=== PATIENT | female | born 1995 | race Caucasian/White ===

== ENCOUNTER 2018-05-21 13:53 | Emergency (ER) | payer OTHER ==
[~2018-05-21] VITALS: Ht 157.5 cm; Wt 86.2 kg
[~2018-05-21 13:53] MED LIST: ACETAMINOPHEN-1 EAC1 PO; AZITHROMYCIN 2250 MG PO; BENADRYL25 MG; FLONASE 0.05%50 MCG NASAL; IBUPROFEN 400400 M2 PO; VENTOLIN HFA 1818 GM INH; [UNRECOGNIZED DRUG - REMARK]
[2018-05-21 15:07] LABS: URINE BILIRUBIN NEGATIVE (Negative); URINE BLOOD NEGATIVE (Negative); URINE CLARITY CLEAR; URINE COLOR YELLOW; URINE GLUCOSE-RANDOM* NEGATIVE (Negative); URINE KETONES NEGATIVE (Negative); URINE NITRITE-REFLEX NEGATIVE (Negative); URINE PROTEIN (DIPSTICK) NEGATIVE (Negative); URINE SPECIFIC GRAVITY 1.025 (1.005-1.035)
[2018-05-21 15:08] LABS: URINE LEUKOCYTES-REFLEX 1+ (Negative); URINE UROBILINOGEN 0.2 E.U./dl (0.2-1.0)
[2018-05-21 15:20] LABS: CASTS None Seen /LPF (None Seen); SQUAMOUS >10 Many /LPF (0-3); URINE RBC 3-10 Few /HPF (0-2)
[2018-05-21 15:21] LABS: AMORPHOUS URATES Moderate /LPF (None Seen); BACTERIA-REFLEX None Seen /HPF (None Seen); URINE WBC-REFLEX 0-5 Rare /HPF (0-5)
[2018-05-21] MEDS ORDERED: TRAMADOL 50 MG50 MG PO (16:45)
[2018-05-21] MEDS ORDERED: CLEOCIN HCL150 MG PO (16:45)
[2018-05-21 17:31] VITALS: BP 139/93
== END 2018-05-21 17:32 | disposition home or self-care (01) ==
LOC: ER 13:53
PROVIDERS: Physician Assistant
DX: N75.1 Abscess of Bartholin's gland (principal); J45.909 Unspecified asthma, uncomplicated; Z88.0 Allergy status to penicillin

== ENCOUNTER 2018-05-24 21:44 | Emergency (ER) | payer OTHER ==
[~2018-05-24] VITALS: Ht 162.6 cm; Wt 102.1 kg
[~2018-05-24 21:44] MED LIST changes: +CLEOCIN HCL150 MG PO; +TRAMADOL 50 MG50 MG PO
[2018-05-24 23:48] VITALS: BP 100/70
== END 2018-05-24 23:50 | disposition home or self-care (01) ==
LOC: ER 21:44
DX: N75.8 Other diseases of Bartholin's gland (principal); J45.909 Unspecified asthma, uncomplicated; Z88.0 Allergy status to penicillin

== ENCOUNTER 2018-10-07 11:49 | Emergency (ER) | payer OTHER ==
[~2018-10-07] VITALS: Ht 162.6 cm; Wt 106.6 kg
[2018-10-07] MEDS ORDERED: ANTIVERT25 MG PO (14:17)
[2018-10-07] MEDS ORDERED: MUCINEX D ER 11 EACH PO (14:17)
[2018-10-07] MEDS ORDERED: TESSALON PERLE100 MG PO (14:17)
[2018-10-07 14:31] VITALS: BP 132/79
== END 2018-10-07 14:32 | disposition home or self-care (01) ==
LOC: ER 11:49
DX: J06.9 Acute upper respiratory infection, unspecified (principal); H83.01 Labyrinthitis, right ear; H61.22 Impacted cerumen, left ear; J45.909 Unspecified asthma, uncomplicated; Z88.0 Allergy status to penicillin

== ENCOUNTER 2019-12-22 10:30 | Emergency (ER) | payer OTHER ==
[~2019-12-22] VITALS: Ht 162.6 cm; Wt 106.6 kg
[~2019-12-22 10:30] MED LIST changes: +ANTIVERT25 MG PO; +MUCINEX D ER 11 EACH PO; +TESSALON PERLE100 MG PO
[2019-12-22 11:05] LABS: ABSOLUTE NEUTROPHILS 4.9 thou/uL (1.4-8.2); BASOPHILS 0.8 % (0.0-2.0); EOSINOPHILS 1.6 % (0.0-3.0); HEMOGLOBIN 14.6 gm/dL (12.0-15.0); LYMPHOCYTES 35.6 % (24.0-44.0); MCHC 33.3 g/dL (28.0-37.0); MCV 81.1 fL (80.0-100.0); MONOCYTES 5.6 % (1.0-8.0); PLATELET COUNT 207 thou/uL (150-400); POLYS 56.4 % (36.0-66.0); RBC 5.42 mil/uL (4.20-5.00); RDW 13.7 % (10.5-14.5); WBC 8.6 thou/uL (4.0-11.0)
[2019-12-22 11:28] LABS: CALCIUM 9.2 mg/dL (8.5-10.1); CREATININE 0.8 mg/dL (0.6-1.0); POTASSIUM 3.9 mmol/L (3.5-5.1)
[2019-12-22 11:32] LABS: URINE BILIRUBIN NEGATIVE (Negative); URINE BLOOD NEGATIVE (Negative); URINE CLARITY CLEAR; URINE COLOR YELLOW; URINE GLUCOSE-RANDOM* NEGATIVE (Negative); URINE KETONES NEGATIVE (Negative); URINE NITRITE-REFLEX NEGATIVE (Negative); URINE PROTEIN (DIPSTICK) NEGATIVE (Negative); URINE SPECIFIC GRAVITY >= 1.030 (1.005-1.035); URINE UROBILINOGEN 0.2 E.U./dl (0.2-1.0)
[2019-12-22 11:33] LABS: URINE LEUKOCYTES-REFLEX 1+ (Negative)
[2019-12-22 11:34] LABS: ALBUMIN 4.1 g/dL (3.4-5.0); TOTAL BILIRUBIN 0.5 mg/dL (0.2-1.0); TOTAL PROTEIN 7.9 g/dL (6.4-8.2)
[2019-12-22 11:45] LABS: CASTS None Seen /LPF (None Seen); SQUAMOUS >10 Many /LPF (0-3); URINE RBC 0-2 Rare /HPF (0-2); URINE WBC-REFLEX 0-5 Rare /HPF (0-5)
[2019-12-22 11:46] LABS: BACTERIA-REFLEX 1-9 Few /HPF (None Seen); CRYSTALS None Seen /LPF (None Seen)
[2019-12-22] MEDS ORDERED: ZOFRAN ODT4 MG PO (12:57)
[2019-12-22] MEDS ORDERED: BENTYL 20 MG TA20 M1 PO (12:57)
[2019-12-22 13:07] VITALS: BP 163/85
== END 2019-12-22 13:07 | disposition home or self-care (01) ==
LOC: ER 10:30
PROVIDERS: Emergency Medicine
DX: R10.11 Right upper quadrant pain (principal); R10.12 Left upper quadrant pain; R19.7 Diarrhea, unspecified; R50.9 Fever, unspecified; R11.0 Nausea; J45.909 Unspecified asthma, uncomplicated; Z88.0 Allergy status to penicillin

== ENCOUNTER 2020-02-03 04:59 | Emergency (ER) | payer OTHER ==
[~2020-02-03] VITALS: Ht 162.6 cm; Wt 108.9 kg
[~2020-02-03 04:59] MED LIST changes: +BENTYL 20 MG TA20 M1 PO; +ZOFRAN ODT4 MG PO
[2020-02-03] MEDS ORDERED: IBUPROFEN200 M1 PO (05:07)
[2020-02-03] MEDS ORDERED: ZOFRAN ODT4 MG PO (06:31)
[2020-02-03] MEDS ORDERED: ULTRAM 50MG TAB50 MG PO (06:31)
[2020-02-03] MEDS ORDERED: SENNA-DOCUSATE1 EAC1 PO (06:31)
[2020-02-03] MEDS ORDERED: CLINDAMYCIN HC150 MG PO (06:31)
[2020-02-03 06:50] VITALS: BP 140/78
== END 2020-02-03 06:52 | disposition home or self-care (01) ==
LOC: ER 04:59
DX: N90.7 Vulvar cyst (principal); J45.909 Unspecified asthma, uncomplicated; Z79.899 Other long term (current) drug therapy; Z88.0 Allergy status to penicillin

== ENCOUNTER 2020-06-26 16:13 | Emergency (ER) | payer OTHER ==
[~2020-06-26] VITALS: Ht 162.6 cm; Wt 104.3 kg
[~2020-06-26 16:13] MED LIST changes: +CLINDAMYCIN HC150 MG PO; +IBUPROFEN200 M1 PO; +SENNA-DOCUSATE1 EAC1 PO; +ULTRAM 50MG TAB50 MG PO
[2020-06-26] MEDS ORDERED: NAPROSYN500 MG PO (17:45)
[2020-06-26] MEDS ORDERED: DOXYCYCLINE 10100 MG PO (17:45)
[2020-06-26] MEDS ORDERED: PROAIR HFA8.5 GM INH (17:45)
[2020-06-26 17:55] VITALS: BP 152/61
== END 2020-06-26 17:56 | disposition home or self-care (01) ==
LOC: ER 16:13
DX: S60.221A Contusion of right hand, initial encounter (principal); J45.909 Unspecified asthma, uncomplicated; Z88.0 Allergy status to penicillin; W22.01XA Walked into wall, initial encounter; Y93.89 Activity, other specified; Y92.89 Other specified places as the place of occurrence of the external cause; Y99.8 Other external cause status

== ENCOUNTER 2020-12-05 17:34 | Emergency (ER) | payer OTHER ==
[~2020-12-05] VITALS: Ht 162.6 cm; Wt 108.9 kg
[~2020-12-05 17:34] MED LIST changes: +DOXYCYCLINE 10100 MG PO; +NAPROSYN500 MG PO; +PROAIR HFA8.5 GM INH
[2020-12-05 18:29] LABS: URINE BILIRUBIN NEGATIVE (Negative); URINE BLOOD NEGATIVE (Negative); URINE CLARITY CLEAR; URINE COLOR YELLOW; URINE GLUCOSE-RANDOM* NEGATIVE (Negative); URINE KETONES NEGATIVE (Negative); URINE NITRITE-REFLEX NEGATIVE (Negative); URINE PROTEIN (DIPSTICK) TRACE (Negative); URINE SPECIFIC GRAVITY 1.015 (1.005-1.035); URINE UROBILINOGEN 0.2 E.U./dl (0.2-1.0)
[2020-12-05 18:32] LABS: URINE LEUKOCYTES-REFLEX 1+ (Negative)
[2020-12-05] MEDS ORDERED: NOHOMEMEDICATIONS (18:33)
[2020-12-05 18:38] LABS: BACTERIA-REFLEX 1-9 Few /HPF (None Seen); CASTS None Seen /LPF (None Seen); MUCUS 0-3 Light strn/LPF (None Seen); SQUAMOUS 0-3 Few /LPF (0-3); URINE RBC None Seen /HPF (NONE SEEN); URINE WBC-REFLEX 0-5 Rare /HPF (0-5)
[2020-12-05 18:39] LABS: CRYSTALS None Seen /LPF (None Seen)
[2020-12-05] MEDS ORDERED: BACTRIM DS TAB1 EACH PO (18:56)
[2020-12-05] MEDS ORDERED: CEPHALEXIN500 MG PO (18:56)
[2020-12-05 19:06] VITALS: BP 117/67
== END 2020-12-05 19:06 | disposition home or self-care (01) ==
LOC: ER 17:34
PROVIDERS: Physician Assistant
DX: L02.415 Cutaneous abscess of right lower limb (principal); J45.909 Unspecified asthma, uncomplicated; F17.210 Nicotine dependence, cigarettes, uncomplicated; F19.90 Other psychoactive substance use, unspecified, uncomplicated; Z88.0 Allergy status to penicillin

== ENCOUNTER 2021-05-17 00:40 | Emergency (ER) | payer OTHER ==
[~2021-05-17] VITALS: Ht 162.6 cm; Wt 113.4 kg
[~2021-05-17 00:40] MED LIST changes: +BACTRIM DS TAB1 EACH PO; +CEPHALEXIN500 MG PO; +NOHOMEMEDICATIONS
[2021-05-17 01:16] VITALS: BP 142/94
== END 2021-05-17 01:17 | disposition home or self-care (01) ==
LOC: ER 00:40
DX: M79.674 Pain in right toe(s) (principal); J45.909 Unspecified asthma, uncomplicated; F17.210 Nicotine dependence, cigarettes, uncomplicated; F12.90 Cannabis use, unspecified, uncomplicated; Z88.0 Allergy status to penicillin; Z91.012 Allergy to eggs; W54.8XXA Other contact with dog, initial encounter; Y93.89 Activity, other specified; Y92.89 Other specified places as the place of occurrence of the external cause; Y99.9 Unspecified external cause status